=== PATIENT | female | born 1935 | race Caucasian/White ===

== ENCOUNTER 2019-01-24 11:13 | Emergency (ER) | payer MEDICARE ==
[~2019-01-24 11:13] MED LIST: ALBUTEROL2.5 MG/3 M IH; ASPI325T6 PO; ATIVAN 0.50.5 MG/TAB PO; Aspirin EC PO; BACTRIM DS 8001 TA1 PO; CETIRIZINE PO; CLONAZEPAM PO; DETROL LA 4MG4 MG PO; DETROL LA4 MG PO; DITROPAN 5MG TAB5 MG PO; FAMILY PHARMAC0.4 MG PO; FERROUS SU325 MG/TAB PO; FERROUS SULFATE65 MG PO; FOLIC ACID0.4 MG PO; Folic Acid PO; GOOD NEIGHBOR500 M2 PO; LEVAQUIN 750MG750 M1 PO; LYRICA 150MG C150 MG PO; LYRICA PO; LYRICA100 MG PO; MILK OF MAG30 ML/CUP PO; MUCINEX 60600 MG/TA1 PO; NEIGHBOR PO; NEXIUM40 MG PO; NORCO 325 MG-51 TAB PO; NORCO 325 MG-7.1 TAB PO; OSCAL W/VIT D250 MG PO; PEPCID 20MG TAB20 MG PO; PHARMASSURE FO0.8 MG PO; Patient's Own Medication PO; ROXICODONE5 MG PO; SENOKOT S 50 MG1 TAB PO; SEPTRA DS 8001 TAB PO; ULTRAM 50MG TAB50 MG PO; VITAMIN B-1000 MCG/T PO; VITAMIN C100 M2 PO; VITAMIN C500 MG PO; ZANTAC150 MG PO
[2019-01-24 12:02] LABS: HEMATOCRIT 41.7 % (37.0-47.0); HEMOGLOBIN 14.1 g/dL (12.5-16.0); MEAN CELL VOLUME 93 fl (78-100); MEAN CORPUSCULAR HEMOGLOBIN 32 pg (27-31); MEAN CORPUSCULAR HGB CONC 34 g/dL (33-37); PLATELET COUNT 97 K/mm3 (130-400); RED BLOOD COUNT 4.48 M/mm3 (4.10-5.30); RED CELL DISTRIBUTION WIDTH 13.7 % (11.5-14.5); WHITE BLOOD COUNT 12.3 K/mm3 (4.8-10.8)
[2019-01-24 12:03] LABS: MEAN PLATELET VOLUME 12.6 fl (7.4-10.4)
[2019-01-24 12:27] LABS: URINE APPEARANCE HAZY; URINE BILIRUBIN 1+ (NEGATIVE); URINE BLOOD 250 ery/uL (NEGATIVE); URINE COLOR DARK YELLOW; URINE GLUCOSE NEGATIVE (NEGATIVE); URINE KETONE 2+ (NEGATIVE); URINE LEUKOCYTE ESTERASE TRACE (NEGATIVE); URINE NITRATE NEGATIVE (NEGATIVE); URINE PROTEIN(semi-quant) 3+ mg/dL (NEGATIVE); URINE UROBILINOGEN NORMAL (NORMAL)
[2019-01-24 12:28] LABS: URINE MUCUS PRESENT (NOT PRESENT)
[2019-01-24 12:35] LABS: LYMPHOCYTE 10 % (20-51); MONOCYTE 28 % (3-10); NEUTROPHILS 62 % (42-75)
[2019-01-24 12:36] LABS: ALBUMIN 4.1 g/dL (3.4-4.8); POTASSIUM 3.6 mmol/L (3.5-5.1)
[2019-01-24 12:37] LABS: CALCIUM 9.4 mg/dL (8.3-10.5)
[2019-01-24 12:38] LABS: TOTAL PROTEIN 7.7 g/dL (6.2-8.1)
[2019-01-24 12:40] LABS: TOTAL BILIRUBIN 0.7 mg/dL (0.2-1.2)
[2019-01-24] MEDS ORDERED: ASPIRIN ADULT L81 M3 PO (12:53)
[2019-01-24] MEDS ORDERED: ATORVASTATIN CA10 MG PO (12:54)
[2019-01-24] MEDS ORDERED: CALCIUM/VITAMIN1 TA3 PO (12:55)
[2019-01-24] MEDS ORDERED: CLOBETASOL PRO118 M1 TOP (12:56)
[2019-01-24] MEDS ORDERED: NEURONTIN300 MG/CAP PO (12:57)
[2019-01-24] MEDS ORDERED: CORTISONE60 GM TOP (13:12)
[2019-01-24] MEDS ORDERED: LEVOTHYROXIN0.088 MG PO (13:13)
[2019-01-24] MEDS ORDERED: DAILY VITAMIN1 EAC3 PO (13:13)
[2019-01-24 13:22] LABS: LIPASE 13 U/L (8-78)
[2019-01-24 16:00] VITALS: BP 155/83
== END 2019-01-24 16:55 | disposition short-term general hospital (02) ==
LOC: ED 11:13
PROVIDERS: Nurse Practitioner Family; Nurse Practitioner Primary Care
DX: K58.9 Irritable bowel syndrome, unspecified (principal); J18.1 Lobar pneumonia, unspecified organism; R09.02 Hypoxemia; E03.9 Hypothyroidism, unspecified; K21.9 Gastro-esophageal reflux disease without esophagitis; E78.5 Hyperlipidemia, unspecified; Z90.710 Acquired absence of both cervix and uterus; Z96.652 Presence of left artificial knee joint; Z98.890 Other specified postprocedural states; Z79.82 Long term (current) use of aspirin
CPT/HCPCS: C9113; J2405; J7030; Q9967

== ENCOUNTER → 2019-03-22 | Outpatient (CLI) | payer MEDICARE ==
[~2019-03-22] MED LIST changes: +ASPIRIN ADULT L81 M3 PO; +ATORVASTATIN CA10 MG PO; +CALCIUM/VITAMIN1 TA3 PO; +CLOBETASOL PRO118 M1 TOP; +CORTISONE60 GM TOP; +DAILY VITAMIN1 EAC3 PO; +LEVOTHYROXIN0.088 MG PO; +NEURONTIN300 MG/CAP PO
[2019-03-22 16:23] LABS: POTASSIUM 3.9 mmol/L (3.5-5.1)
[2019-03-22 16:24] LABS: CALCIUM 9.4 mg/dL (8.3-10.5)
== END ==
LOC: LAB 15:52
PROVIDERS: Family Medicine
DX: E87.6 Hypokalemia (principal); E03.9 Hypothyroidism, unspecified

== ENCOUNTER → 2019-09-09 | Outpatient (CLI) | payer MEDICARE ==
[2019-09-09 17:16] LABS: PH-URINE 7.5 (5.0 - 8.0); URINE APPEARANCE CLOUDY; URINE BILIRUBIN NEGATIVE (NEGATIVE); URINE BLOOD 250 ery/uL (NEGATIVE); URINE COLOR YELLOW; URINE GLUCOSE NEGATIVE (NEGATIVE); URINE KETONE 1+ (NEGATIVE); URINE LEUKOCYTE ESTERASE 2+ (NEGATIVE); URINE NITRATE POSITIVE (NEGATIVE); URINE PROTEIN(semi-quant) 2+ mg/dL (NEGATIVE); URINE UROBILINOGEN NORMAL (NORMAL); URINE WBC >50 /hpf (0-3)
== END ==
LOC: LAB 14:00
PROVIDERS: Family Medicine
DX: N39.0 Urinary tract infection, site not specified (principal)

== ENCOUNTER → 2020-02-23 | Outpatient (CLI) | payer MEDICARE ==
[~2020-02-23] MED LIST changes: +ACETAMINOPHEN500 M5 PO; +ASPIRIN 81M81 MG/TA2 PO; +AZELASTINE137 MCG/A1 NS; +CLOBETASOL PRO118 M1 TP; +COLACE100 M1 PO; +COZAAR100 MG PO; +CYANOCOBAL1000 MCG/2 IM; +DESITIN MULTI-P99 G1 TP; +DULCOLAX S10 MG/SUPP RC; +FENOFIBRATE160 MG PO; +FERROUS SULFAT325 M4 PO; +FLEET ENEM1 BOT/133 RC; +FLUTICASON0.05 MG/AC NS; +GLUCOPHAGE XR500 M2 PO; +GOOD NEIGH1200 MG/15 PO; +GOOD NEIGHBOR5.8 MG MM; +IMODIUM A-D2 M3 PO; +IPRATROPIUM BROM3 M1 IH; +LEXAPRO 10MG10 MG PO; +LIPITOR 40MG TA40 MG PO; +MAGNESIUM400 MG PO; +MELATONIN5 M3 PO; +MIRALAX17 GM PO; +MUCUS ER1200 MG PO; +MULTIPLE VITAMI1 TA5 PO; +MULTIVITAMIN1 SGL PO; +NYAMYC100000 U/G TP; +OS-CAL 500+D31 EACH PO; +PRILOSEC OTC20 MG PO; +RANEXA500 M1 PO; +SINGULAIR PO; +SYNTHROID RP0.088 MG PO; +TRIAMCINOLONE AC0.13 TP
[2020-02-23 15:09] LABS: URINE APPEARANCE HAZY; URINE BILIRUBIN NEGATIVE (NEGATIVE); URINE BLOOD 250 ery/uL (NEGATIVE); URINE COLOR BROWN; URINE GLUCOSE NEGATIVE (NEGATIVE); URINE KETONE NEGATIVE (NEGATIVE); URINE LEUKOCYTE ESTERASE 2+ (NEGATIVE); URINE NITRATE NEGATIVE (NEGATIVE); URINE PROTEIN(semi-quant) 3+ mg/dL (NEGATIVE); URINE UROBILINOGEN NORMAL (NORMAL)
== END ==
LOC: LAB 14:46
PROVIDERS: Family Medicine
DX: R35.0 Frequency of micturition (principal); R39.15 Urgency of urination

== ENCOUNTER 2020-02-24 07:27 | Emergency (ER) | payer MEDICARE ==
[~2020-02-24] VITALS: Ht 170.2 cm; Wt 80.5 kg
[~2020-02-24 07:27] MED LIST changes: -ACETAMINOPHEN500 M5 PO; -ASPIRIN 81M81 MG/TA2 PO; -AZELASTINE137 MCG/A1 NS; -CLOBETASOL PRO118 M1 TP; -COLACE100 M1 PO; -COZAAR100 MG PO; -CYANOCOBAL1000 MCG/2 IM; -DESITIN MULTI-P99 G1 TP; -DULCOLAX S10 MG/SUPP RC; -FENOFIBRATE160 MG PO; -FERROUS SULFAT325 M4 PO; -FLEET ENEM1 BOT/133 RC; -FLUTICASON0.05 MG/AC NS; -GLUCOPHAGE XR500 M2 PO; -GOOD NEIGH1200 MG/15 PO; -GOOD NEIGHBOR5.8 MG MM; -IMODIUM A-D2 M3 PO; -IPRATROPIUM BROM3 M1 IH; -LEXAPRO 10MG10 MG PO; -LIPITOR 40MG TA40 MG PO; -MAGNESIUM400 MG PO; -MELATONIN5 M3 PO; -MIRALAX17 GM PO; -MUCUS ER1200 MG PO; -MULTIPLE VITAMI1 TA5 PO; -MULTIVITAMIN1 SGL PO; -NYAMYC100000 U/G TP; -OS-CAL 500+D31 EACH PO; -PRILOSEC OTC20 MG PO; -RANEXA500 M1 PO; -SINGULAIR PO; -SYNTHROID RP0.088 MG PO; -TRIAMCINOLONE AC0.13 TP
[2020-02-24 08:33] LABS: HEMATOCRIT 37.1 % (37.0-47.0); HEMOGLOBIN 11.7 g/dL (12.5-16.0); MEAN CELL VOLUME 94 fl (78-100); MEAN CORPUSCULAR HEMOGLOBIN 30 pg (27-31); MEAN CORPUSCULAR HGB CONC 32 g/dL (33-37); PLATELET COUNT 270 K/mm3 (130-400); RED BLOOD COUNT 3.97 M/mm3 (4.10-5.30)
[2020-02-24 08:39] LABS: WHITE BLOOD COUNT 34.8 K/mm3 (4.8-10.8)
[2020-02-24 08:43] LABS: ALBUMIN 2.8 g/dL (3.4-4.8); POTASSIUM 3.6 mmol/L (3.5-5.1)
[2020-02-24 08:44] LABS: CALCIUM 9.5 mg/dL (8.3-10.5)
[2020-02-24 08:45] LABS: LYMPHOCYTE 6 % (20-51); MONOCYTE 24 % (3-10); NEUTROPHILS 68 % (42-75)
[2020-02-24 08:46] LABS: TOTAL PROTEIN 6.5 g/dL (6.2-8.1)
[2020-02-24 08:48] LABS: TOTAL BILIRUBIN 0.3 mg/dL (0.2-1.2)
[2020-02-24] MEDS ORDERED: FLUTICASON0.05 MG/AC NS (09:21)
[2020-02-24] MEDS ORDERED: COZAAR100 MG PO (09:21)
[2020-02-24] MEDS ORDERED: MULTIPLE VITAMI1 TA5 PO (09:22)
[2020-02-24] MEDS ORDERED: AZELASTINE137 MCG/A1 NS (09:23)
[2020-02-24] MEDS ORDERED: MAGNESIUM400 MG PO (09:23)
[2020-02-24] MEDS ORDERED: ASPIRIN 81M81 MG/TA2 PO ×2 (09:24→09:42)
[2020-02-24] MEDS ORDERED: IPRATROPIUM BROM3 M1 IH (09:24)
[2020-02-24] MEDS ORDERED: LIPITOR 40MG TA40 MG PO (09:24)
[2020-02-24] MEDS ORDERED: CYANOCOBAL1000 MCG/2 IM (09:25)
[2020-02-24] MEDS ORDERED: COLACE100 M1 PO (09:26)
[2020-02-24] MEDS ORDERED: FENOFIBRATE160 MG PO (09:26)
[2020-02-24] MEDS ORDERED: SINGULAIR PO (09:27)
[2020-02-24] MEDS ORDERED: PRILOSEC OTC20 MG PO (09:27)
[2020-02-24] MEDS ORDERED: FERROUS SULFAT325 M4 PO (09:27)
[2020-02-24] MEDS ORDERED: MIRALAX17 GM PO (09:28)
[2020-02-24] MEDS ORDERED: RANEXA500 M1 PO (09:28)
[2020-02-24] MEDS ORDERED: MUCUS ER1200 MG PO (09:29)
[2020-02-24] MEDS ORDERED: GLUCOPHAGE XR500 M2 PO (09:29)
[2020-02-24] MEDS ORDERED: ACETAMINOPHEN500 M5 PO (09:41)
[2020-02-24] MEDS ORDERED: CLOBETASOL PRO118 M1 TP (09:42)
[2020-02-24] MEDS ORDERED: GOOD NEIGHBOR5.8 MG MM (09:42)
[2020-02-24] MEDS ORDERED: DESITIN MULTI-P99 G1 TP (09:43)
[2020-02-24] MEDS ORDERED: DULCOLAX S10 MG/SUPP RC (09:43)
[2020-02-24] MEDS ORDERED: LEXAPRO 10MG10 MG PO (09:44)
[2020-02-24] MEDS ORDERED: FLEET ENEM1 BOT/133 RC ×2 (09:44)
[2020-02-24] MEDS ORDERED: IMODIUM A-D2 M3 PO (09:44)
[2020-02-24] MEDS ORDERED: GOOD NEIGH1200 MG/15 PO (09:45)
[2020-02-24] MEDS ORDERED: MELATONIN5 M3 PO (09:45)
[2020-02-24] MEDS ORDERED: NYAMYC100000 U/G TP (09:46)
[2020-02-24] MEDS ORDERED: MULTIVITAMIN1 SGL PO (09:46)
[2020-02-24] MEDS ORDERED: SYNTHROID RP0.088 MG PO (09:47)
[2020-02-24] MEDS ORDERED: OS-CAL 500+D31 EACH PO (09:47)
[2020-02-24] MEDS ORDERED: TRIAMCINOLONE AC0.13 TP (09:48)
[2020-02-24 14:00] VITALS: BP 105/69
== END 2020-02-24 14:05 | disposition short-term general hospital (02) ==
LOC: ED 07:27
PROVIDERS: Nurse Practitioner Family
DX: K56.609 Unspecified intestinal obstruction, unspecified as to partial versus complete obstruction (principal); J18.1 Lobar pneumonia, unspecified organism; R65.20 Severe sepsis without septic shock; N30.00 Acute cystitis without hematuria; Z79.82 Long term (current) use of aspirin
CPT/HCPCS: J0696; J2543; J7120; Q9967